=== PATIENT | female | born 2000 | race African-American/Black ===

== ENCOUNTER 2022-01-23 10:25 | Outpatient (CLI) | payer OTHER ==
[2022-01-23 11:09] LABS: Basophils % (Auto) 0.4 % (0.0-1.8); Eosinophils # (Auto) 0.1 K/mm3 (0.0-0.4); Eosinophils % (Auto) 2.1 % (0.0-4.3); Hematocrit 38.9 % (30.3-42.9); Hemoglobin 12.7 gm/dl (10.1-14.3); Lymphocytes # (Auto) 2.2 K/mm3 (1.2-5.4); Lymphocytes % (Auto) 39.9 % (13.4-35.0); Mean Corpuscular HGB Conc 33 % (30-34); Mean Corpuscular Volume 89 fl (79-97); Monocytes # (Auto) 0.4 K/mm3 (0.0-0.8); Platelet Count 274 K/mm3 (140-440); Red Blood Count 4.39 M/mm3 (3.65-5.03); Red Cell Distribution Width 13.3 % (13.2-15.2)
== END 2022-01-23 10:26 | disposition home or self-care (01) ==
LOC: LAB 10:25
DX: R53.83 Other fatigue (principal)
CPT/HCPCS: 36415; 85025